=== PATIENT | male | born 1950 | race Caucasian/White ===

== ENCOUNTER 2025-04-13 13:33 | Emergency (ER) | payer MEDICARE, OTHER, SELFPAY ==
[2025-04-13 13:46] VITALS: BP 155/112
[2025-04-13 15:05] LABS: Hematocrit 41.8 % (39.0-52.0); Hemoglobin 14.0 g/dL (13.0-18.0); Mean Corp Hgb Conc. 33.5 g/dL (33.0-37.0); Mean Corpuscular Volume 87.1 fL (80.0-94.0); Nucleated Red Blood Cells % 0 % (-); Platelet Count 442 10^3/uL (130-400); Red Cell Dist. Width 12.7 % (11.5-14.5)
[2025-04-13 15:35] LABS: ALT (SGPT) 42 U/L (0-50); AST (SGOT) 36 U/L (17-59); Albumin 4.1 g/dl (3.5-5.0); Alkaline Phosphatase 75 U/L (38-126); Blood Urea Nitrogen 14 mg/dl (9-20); Calcium 9.3 mg/dl (8.4-10.2); Carbon Dioxide 26 mmol/L (22-30); Chloride 99 mmol/L (98-107); Glucose 125 mg/dl (70-99); Potassium 4.8 mmol/L (3.5-5.1); Sodium 135 mmol/L (135-145); Total Protein 7.4 g/dl (6.3-8.2); eGFR > 60.00
[2025-04-13 16:23] VITALS: BP 176/99
[2025-04-13] MEDS: VALIUM INJECTION 2 MG IV (16:33)
[2025-04-13] MEDS: DECADRON 10 MG IV (16:33)
--- NOTE | 2025-04-13 16:40 | ED.GENMED ---
History of Present Illness
General
Chief Complaint: Musculo-Skeletal Complaint
Time Seen by Provider: 04/13/25 15:49
History of Present Illness
History of Present Illness:
74-year-old male with history of hypertension presenting to the emergency department for neck stiffness. Patient reports that his neck has been stiff for the past 5 days. He has had this twice in the past and usually symptoms improve over time,
however when he woke up this morning, felt that the neck stiffness was worse. This prompted him to follow-up with his primary care doctor. When he saw his primary today around noon, was noted to have a temperature. He was given an OxyContin for
pain. He has not had any antipyretics today. Denies known fever. However, does note that he was recently in [place] a few weeks ago, did have a viral illness at that time with cough and bodyaches, which mostly resolved. also had similar
symptoms. Patient denies any headache, notes that the pain is all focused to the neck, with radiation down to her shoulders with limited range of motion secondary to pain. Denies any photophobia. Denies additional cough, difficulty breathing,
chest pain, abdominal pain. He has not been taking any medications for pain, is not able to take NSAIDs. Denies additional acute medical complaints
Phy Exam
Physical Exam
Physical Exam:
General: Well-appearing, no clinical signs of dehydration, nontoxic and in no acute distress
HEENT: protecting airway
Neck: appears supple, no significant tenderness to the neck, however limited range of motion secondary to pain, with both rotational, extension, flexion. Hypertonicity to the paraspinal musculature. No overlying skin changes.
CV: Normal heart rate, regular rhythm
Resp: No accessory muscle use, no increased work of breathing, lungs clear to auscultation bilaterally
Abd: No distention
Extremities: No deformities, no swelling
Neuro: alert, no focal neurologic deficit. Negative Kernig and Brudzinski sign
: deferred
Rectal: deferred
Psych: Normal affect
Skin: Intact
Course
Orders/Labs/Results
Orders:
Orders
04/13/25 14:58
CMP [Comprehensive Metabolic Panel] Urgent
Complete Blood Count/With Diff Urgent
04/13/25 16:15
Dexamethasone Sod Phosphate [Decadron] 10 mg IV NOW STA
diazePAM [Valium Injection] 2 mg IV NOW STA
04/13/25 16:18
CT Cervical Spine W/o Iv Contr Urgent
Comment:
Reason For Exam: neck pain, reported fever
CT Head W/o Iv Contrast Urgent
Comment:
Reason For Exam: neck pain, fever
04/13/25 16:34
COVID-19 Antigen Urgent
Source: Nasal Swab
Influenza A+B Rapid Molecular Urgent
MARIO Source: Nasal Swab
Specimen Description:
04/13/25 18:44
Add On- LAB Urgent
Tests Added?: lyme progressive
Doxycycline [Vibramycin] 100 mg PO NOW STA
Abnormal Lab Results
04/13/25
14:58
WBC 16.3 H 10^3/uL
(4.8-10.8)
Plt Count 442 H 10^3/uL
(130-400)
Abs Immat Gran (auto) 0.1 H 10^3/uL
(0-0.05)
Absolute Neuts (auto) 14.1 H 10^3/uL
(1.4-6.5)
Absolute Lymphs (auto) 0.9 L 10^3/uL
(1.2-3.4)
Absolute Monos (auto) 1.3 H 10^3/uL
(0.1-0.6)
Neutrophils % 86.2 H %
(42.2-75.2)
Lymphocytes % 5.3 L %
(20.5-51.1)
Glucose 125 H mg/dl
(70-99)
04/13/25 14:58
04/13/25 14:58
Vital Signs
Initial and Last Documented VS:
Initial Vital Signs
Temp Pulse Resp BP Pulse Ox
98.5 F 119 18 155/112 95
04/13/25 13:46 04/13/25 13:46 04/13/25 13:46 04/13/25 13:46 04/13/25 13:46
Last Documented Vital Signs
Temp Pulse Resp BP Pulse Ox
98.5 F 93 22 146/83 94
04/13/25 13:46 04/13/25 18:15 04/13/25 17:00 04/13/25 18:00 04/13/25 18:00
MDM/Problems Addressed
MDM/Problems Addressed:
74-year-old male with history of hypertension hyperlipidemia presenting to the emergency department for neck stiffness. Vital signs on arrival are normal.
On exam patient is resting comfortably, no acute distress, nontoxic. Patient symptom presentation and physical exam appears consistent with cervical strain. Patient was sent to the ER with overlying concern for meningitis, noted to have a fever at
the primary care office. However, patient is afebrile here, did not have any antipyretics prior to arrival. In addition, patient denies any headache, no photophobia, no photophobia. Symptoms appear less consistent with acute meningitis. Labs
obtained prior to my assessment, which do show leukocytosis. Will send COVID and flu swab. Will also obtain CT imaging of the head and C-spine, however at this time without present indication for urgent lumbar puncture. Valium and Decadron
administered for patient's symptoms. Will reassess.
18:10 -COVID and flu are negative patient CT of the brain without acute abnormality. CT cervical spine shows multiple areas of degenerative disc disease and spinal stenosis. Suspected etiology of patient's symptoms, cervical strain. Did recheck
temperature, again afebrile with no antipyretics administered. Patient notes some improvement after symptoms. At this time, continued low suspicion for acute meningitis. In shared decision making, do not feel patient requires urgent lumbar
puncture. Plan for outpatient supportive therapy with pain medication, steroids, muscle relaxers with outpatient neurosurgical versus orthopedic follow-up given patient's cervical findings. Patient in agreement with this plan, however strict
return precautions were communicated to patient and at bedside including worsening pain, photophobia or phonophobia, fever, headache, weakness or numbness to extremities and patient and verbalized understanding
18:40 -upon discharge, patient was getting dressed and was found to have a tick on the left side of his back. Tick was subsequently removed. notes history of Lyme disease in the past with complicated course. Will send Lyme progressive and
start patient on doxycycline given history of preceding possible fever. However at this time without concern for Lyme meningitis. Prescription for doxycycline sent.
*Pulse Oximetry
SaO2: 95
Oxygen Mode of Delivery: Room air
Patient hypoxic: no
*Critical Care Note
Total Time (30-74mins, 75-104mins- exclusive of procedures): Not Applicable
ED Attending Note
-
Portions of this chart may have been created with voice recognition software.� Occasional wrong word or��sound alike� substitutions may have occurred due to the inherent limitations of voice recognition software.
Discharge Plan
Departure
Patient Disposition: Home (Routine Discharge)
Date of Disposition: 04/13/25
Time of Disposition: 18:25
Patient with high blood pressure during this ER visit?: No
Condition: Good
Discharge Problem:
Sprain of cervical neck, Degenerative disc disease, cervical
Instructions: Cervical Sprain ED, Cervical spinal stenosis
Prescriptions:
New
oxycodone-acetaminophen [Percocet] 5-325 mg tablet
1 tab PO Q6HPRN PRN (Reason: pain) Qty: 12 0RF
prednisone 20 mg tablet
40 mg PO DAILY 4 Days Qty: 8 0RF
cyclobenzaprine 10 mg tablet
10 mg PO TIDPRN PRN (Reason: muscle spasm) 5 Days Qty: 15 0RF
doxycycline monohydrate 100 mg capsule
100 mg PO BID 14 Days Qty: 28 0RF
No Action
sildenafil 50 mg Tablet
50 mg PO DAILY PRN (Reason: prn)
enalapril maleate 20 mg Tablet
20 mg PO DAILY
amlodipine 5 mg Tablet
5 mg PO DAILY
metoprolol tartrate 25 mg Tablet
25 mg PO BID
magnesium glycinate 100 mg Tablet
100 mg PO DAILY
cholecalciferol (vitamin D3) [Vitamin D3] 125 mcg (5,000 unit) Tablet
125 mcg PO DAILY
Referrals:
Nic Vaughn DO [Active, Neurosurgery]
Daniel Duran MD [Active, Orthopedics]
NONE,* [Family Provider, Internal Medicine]
Activity Restrictions/Additional Instructions:
You were seen in the emergency department for neck pain and stiffness
You were found to have reassuring vital signs. You had a CT of your cervical spine which showed severe degenerative disc disease at multiple aspects of the cervical spine which we suspect is contributing to your pain. There was concern that you
may have had a fever at your primary care office, however no fever detected here. You did have some slight elevation of your white blood cell count in the emergency department, which sometimes is a sign of infection. However, you had no additional
concerning features of infection on your exam. You were prescribed a steroid, pain medication, muscle relaxer for your symptoms.
Please follow-up closely with your primary care physician.
Return to the emergency department for any worsening of your symptoms including worsening pain, headache, weakness or numbness to your extremities, visual changes, increased light or noise sensitivity, fever greater than 100.4, development of chest
pain, difficulty breathing, abdominal pain with persistent vomiting and inability to tolerate food or liquid by mouth (concern for dehydration), or any additional symptoms that are concerning to you.
Thank you for choosing [facility].
Interventions
Interventions:
*Risk Screen - Suicide Last Done: 04/13/25 13:46
*General Assessment Last Done: 04/13/25 13:46
*Neglect/Abuse Screening Last Done: 04/13/25 16:21
*ED- Fall Risk Assessment Last Done: 04/13/25 16:21
*ED COVID-19 Vaccine History Last Done: 04/13/25 13:46
*ED Influenza Vaccine History Last Done: 04/13/25 13:46
ED-Musculoskeletal Assessment Last Done: 04/13/25 16:21
Discharge Date and Time
Print Language: COMORAN
[2025-04-13 16:51] VITALS: BMI 26.8
[2025-04-13 17:00] VITALS: BP 165/88
[2025-04-13 17:05] LABS: COVID-19 Antigen Negative (Negative)
[2025-04-13 18:00] VITALS: BP 146/83
[2025-04-13] MEDS: VIBRAMYCIN 100 MG PO (18:50)
[2025-04-14 10:58] LABS: Lyme Antibody Screen, EIA Presump. Positive (Negative)
== END 2025-04-13 18:57 | disposition home or self-care (01) ==
LOC: EMR 13:33
PROVIDERS: Emergency Medicine; EMERGENCY PHYSICIAN Student in an Organized Health Care Education/Training Program
DX: S13.4XXA Sprain of ligaments of cervical spine, initial encounter (principal); X58.XXXA Exposure to other specified factors, initial encounter; M50.30 Other cervical disc degeneration, unspecified cervical region; I10 Essential (primary) hypertension; E78.5 Hyperlipidemia, unspecified; Z11.52 Encounter for screening for COVID-19
CPT/HCPCS: 96374; 96375; 99285; 70450; 72125; 80053; 85025; 86617; 86618; 87502; 87811